=== PATIENT | female | born 1980 | race Caucasian/White ===

== ENCOUNTER 2017-02-28 13:16 | Emergency (ER) | payer OTHER ==
[~2017-02-28] VITALS: Ht 165.1 cm; Wt 117.5 kg
[~2017-02-28 13:16] MED LIST: BACT800T5 PO; CEPH500C3 PO; DOXY100T PO
[2017-02-28 13:26] VITALS: BP 147/92; PULSE 89; RESP 16; TEMP 98.9; O2SAT 98
[2017-02-28] MEDS ORDERED: LIDOCAINE 1%/EPINEPHrine 1:100,000 SOLN 30 ML VIAL INFIL ONE (13:45)
[2017-02-28] MEDS ORDERED: LIDOCAINE 1%/EPINEPHrine 1:100,000 SOLN 20 ML VIAL INFIL ONE (13:45)
--- NOTE | 2017-02-28 13:47 | PD ---
HPI Chief Complaint: Skin Problem Time Seen by Provider: 13:43 Travel History International Travel<30 days: No Contact w/Intl Traveler<30days: No Traveled to known affect area: No History of Present Illness HPI 36-year-old female presents to the emergency room for evaluation of an abscess to her left axilla that has been ongoing for the past 2 days. States it started off as a small pimple and then got larger very quickly. She tried to squeeze last night was unable to get any drainage. Patient denies fever, chills , nausea, vomiting. She has history of MRSA. Up-to-date on tetanus. PFSH Past Medical History Hx Anticoagulant Therapy: No Cancer: Yes (CERVICAL) Cardiovascular Problems: Yes (GESTATIONAL HTN) Diabetes: No Diminished Hearing: No ?: Not Past Surgical History Abdominal Surgery: Yes (OPEN LAPROSCOPIC, ABSCESS IN ABD) Section: Yes Hysterectomy: Yes Social History Alcohol Use: No Tobacco Use: Yes (1/2 ppd) Substance Use: No Allergies-Medications (Allergen,Severity, Reaction): Coded Allergies: Demerol (Verified Allergy, Severe, Patient states, "It will kill me"., ) Phenergan (Verified Allergy, Unknown, Itching, 02/28/17) *MDRO Multi-Drug Resistant Organism (Verified Adverse Reaction, Unknown, ) MRSA (foot-05/07/16) Reported Meds & Prescriptions Reported Meds & Active Scripts Active Reported Pseudoephedrine (Pseudoephedrine HCl) 60 Mg Tab 60 Mg PO Q6H PRN Claritin (Loratadine) 10 Mg Cap 10 Mg PO DAILY Review of Systems Except as stated in HPI: all other systems reviewed are Neg Physical Exam Narrative GENERAL: Well-nourished, well-developed female in no acute distress. Afebrile. Ambulatory. SKIN: Focused skin assessment warm/dry. There is an indurated area in the left axilla which measures about 4 cm in diameter. It is fluctuant but there is no pointing or drainage. There is a zone of inflammation around it but no lymphangitis. HEAD: Normocephalic. EYES: No scleral icterus. No injection or drainage. NECK: Supple, trachea midline. No JVD or lymphadenopathy. CARDIOVASCULAR: Regular rate and rhythm without murmurs, gallops, or rubs. RESPIRATORY: Breath sounds equal bilaterally. No accessory muscle use. PSYCHIATRIC: No delusional thought processes. No hallucinations. Data Data Last Documented VS Vital Signs Date Time Temp Pulse Resp B/P Pulse Ox O2 Delivery O2 Flow Rate FiO2 02/28/17 13:26 98.9 89 16 147/92 98 Orders Wound Culture And Gram Stain (02/28/17 13:41) Lidocai-Epi 1%-1:100,000 Inj (Xylocaine- (02/28/17 13:45) MDM Medical Decision Making Medical Screen Exam Complete: Yes Emergency Medical Condition: Yes Medical Record Reviewed: Yes Differential Diagnosis Abscess versus cellulitis versus MRSA Narrative Course 36-year-old female with MRSA presents to the emergency room for evaluation of an abscess to her left axilla for the past 3 days. It worsened yesterday. No systemic signs of infection. Patient is afebrile well-appearing in the emergency room. Resting comfortably in bed. His exam reveals an indurated area in the left axilla without lymphangitis. No spontaneous drainage. Abscess was drained, see procedure for details. Patient discharged with Bactrim and told to follow up with her primary care physician or return to the emergency room forcing symptoms. She understands and agrees plan. Procedures Procedure Narrative INCISION AND DRAINAGE OF ABSCESS: The area was prepped and was sterilely draped. A subcutaneous wheal of 1% lidocaine with epinephrine with a total number 3 mL was used to anesthetize the area properly. A number 11 scalpel was used to make a 1 cm incision across the area of the abscess. The abscess was drained, complex loculations were broken down, and irrigated with normal saline. Cultures were obtained. Quarter inch iodoform packing was placed in the wound. Sterile dressing applied. Patient advised to have packing removed in two days. Diagnosis Primary Impression: Abscess of left axilla Referrals: Primary Care Physician Patient Instructions: Abscess (ED), General Instructions Additional Instructions: Rest and drink plenty of fluids. Take Bactrim as directed, until gone. Return to the emergency room in 2 days to have packing removed. If it falls out before, this is okay. Follow up with a primary care physician. Return to emergency room for worsening symptoms, as discussed. Med/Other Pt SpecificInfo: Prescription(s) given Disposition: 01 DISCHARGE HOME Condition: Stable Teresa Sullivan February 28, 2017 13:47
[2017-02-28] MEDS ORDERED: CLAR10CA3 PO (13:48)
[2017-02-28] MEDS ORDERED: SUDO60TA2 PO (13:48)
[2017-02-28] MEDS ORDERED: BACT800T5 PO (14:50)
== END 2017-02-28 15:25 | disposition home or self-care (01) ==
LOC: PHEFT 13:16
DX: L02.412 Cutaneous abscess of left axilla (principal); A49.02 Methicillin resistant Staphylococcus aureus infection, unspecified site; F17.210 Nicotine dependence, cigarettes, uncomplicated
CPT/HCPCS: 10061; 86403; 87070; 87186; 87205

== ENCOUNTER 2017-04-17 10:05 | Emergency (ER) | payer OTHER ==
[~2017-04-17] VITALS: Ht 165.1 cm; Wt 115.2 kg
[~2017-04-17 10:05] MED LIST changes: -CEPH500C3 PO; +CLAR10CA3 PO; -DOXY100T PO; +SUDO60TA2 PO
[2017-04-17 10:11] VITALS: BP 152/102; PULSE 82; RESP 16; TEMP 98.4; O2SAT 98
[2017-04-17] MEDS ORDERED: DOXY100C PO (10:44)
--- NOTE | 2017-04-17 10:44 | PD ---
HPI Chief Complaint: Skin Problem Time Seen by Provider: 10:23 Travel History International Travel<30 days: No Contact w/Intl Traveler<30days: No Traveled to known affect area: No History of Present Illness HPI Patient 36-year-old female presents emergency Department with pain and swelling and drainage from her left armpit. Patient states that she's had a similar thing happen to her couple months ago and had to be drained in the emergency department, she was placed on Bactrim at that time and then she received a phone call stating that the Bactrim may not work for her after her wound culture came back. Patient states that her wound has been present for the past week and started draining spontaneously which caused her to come into the emergency department, denies any fever denies any nausea vomiting chest pain shortness of breath. She's been scrubbing her armpit with Hibiclens. Incidentally the patient has a history of cervical cancer which is in remission and status post radical hysterectomy. she has not followed up with a primary care physician in many years, denies any weight loss denies. PFSH Past Medical History Hx Anticoagulant Therapy: No Cancer: Yes (CERVICAL, ovarian ) Cardiovascular Problems: Yes (GESTATIONAL HTN) Diabetes: No Diminished Hearing: No ?: Not Past Surgical History Abdominal Surgery: Yes (OPEN LAPROSCOPIC, ABSCESS IN ABD) Section: Yes Hysterectomy: Yes Social History Alcohol Use: No Tobacco Use: Yes (3 CIG/DAY) Substance Use: No Allergies-Medications (Allergen,Severity, Reaction): Coded Allergies: Demerol (Verified Allergy, Severe, Patient states, "It will kill me"., ) Phenergan (Verified Allergy, Unknown, Itching, 04/17/17) *MDRO Multi-Drug Resistant Organism (Verified Adverse Reaction, Unknown, ) MRSA (foot-05/07/16) MRSA (arm wound) - 02/28/17 Reported Meds & Prescriptions Reported Meds & Active Scripts Active Doxycycline Hyclate 100 Mg Cap 100 Mg PO BID 7 Days Review of Systems Except as stated in HPI: all other systems reviewed are Neg Physical Exam Narrative GENERAL: Well-nourished, well-developed patient. SKIN: Focused skin assessment warm/dry. Left arm. Has a small pustule with minimal surrounding cellulitis, no palpable fluid collection. Minimally tender to palpation. No lymphadenopathy appreciated. HEAD: Normocephalic. EYES: No scleral icterus. No injection or drainage. NECK: Supple, trachea midline. No JVD or lymphadenopathy. CARDIOVASCULAR: Regular rate and rhythm without murmurs, gallops, or rubs. RESPIRATORY: Breath sounds equal bilaterally. No accessory muscle use. GASTROINTESTINAL: Abdomen soft, non-tender, nondistended. MUSCULOSKELETAL: No cyanosis, or edema. BACK: Nontender without obvious deformity. No CVA tenderness. Data Data Last Documented VS Vital Signs Date Time Temp Pulse Resp B/P Pulse Ox O2 Delivery O2 Flow Rate FiO2 04/17/17 10:11 98.4 82 16 152/102 98 Orders Ed Poc Ultrasound (04/17/17 ) MDM Medical Decision Making Medical Screen Exam Complete: Yes Emergency Medical Condition: Yes Differential Diagnosis Cellulitis, abscess, ingrown hair, hidradenitis suppurativa Narrative Course Patient roomed emergency department, bedside ultrasound shows no drainable fluid collection, she appears well in no distress. She was offered pain medicine and declined. Will be discharged on doxycycline. The review of the microbiology from several months ago does show the Bactrim was effective but will try alternative regimen given her history. Procedures Procedure Narrative Bedside ultrasound: With linear probe soft tissue images were obtained of the left axilla showing a small subcutaneous fluid collection, minimal cobblestoning. Diagnosis Primary Impression: Abscess of left axilla Referrals: Emil Evangelista MD [facility] Additional Instructions: Can follow-up with Dr. Evangelista as needed for considerations of surgical options, also consider following up with the [place]. Med/Other Pt SpecificInfo: Prescription(s) given Scripts Doxycycline Hyclate 100 Mg [id number] Mg PO BID 7 Days Ref 0 Prov:Ramin Eden MD 04/17/17 Disposition: 01 DISCHARGE HOME Condition: Stable Ramin Eden MD Apr 17, 2017 10:44
== END 2017-04-17 10:59 | disposition home or self-care (01) ==
LOC: PHED 10:05
DX: L02.412 Cutaneous abscess of left axilla (principal); Z72.0 Tobacco use
CPT/HCPCS: 99284

== ENCOUNTER 2017-05-25 12:55 | Emergency (ER) | payer SELFPAY ==
[~2017-05-25] VITALS: Ht 165.1 cm; Wt 113.0 kg
[~2017-05-25 12:55] MED LIST changes: -BACT800T5 PO; -CLAR10CA3 PO; +DOXY100C PO; -SUDO60TA2 PO
[2017-05-25 12:56] VITALS: BP 151/86; PULSE 94; RESP 24; TEMP 98.3; O2SAT 97
--- NOTE | 2017-05-25 13:18 | PD ---
Physical Exam Date Seen by Provider: May 25, 2017 Time Seen by Provider: 13:13 Narrative 36 y/o female here with complaints of episode of Near Syncopy last night and Fevers and Cold Symptoms with Cough, Post Tussive Emesis, and Night Sweats. Some Increased SOB and Weak. No Abd Pain. No Urinary Symptoms. Fever as high as 101. Vital Signs reviewed. Patient is Stable and awaiting Bed Placement. Data Data Last Documented VS Vital Signs Date Time Temp Pulse Resp B/P (MAP) Pulse Ox O2 Delivery O2 Flow Rate FiO2 05/25/17 12:56 98.3 94 24 151/86 (107) 97 Room Air [facility] Medical Record Reviewed: Yes Supervised Visit with GLENN: Yes Condition: Stable Darwin Tapia May 25, 2017 13:18
--- NOTE | 2017-05-25 15:00 | RADRPT ---
EXAM DATE/TIME: 05/25/2017 14:53 [place] COMPARISON: No previous studies available for comparison. INDICATIONS : Short of breath and productive cough this morning. MEDICAL HISTORY : None. SURGICAL HISTORY : None. ENCOUNTER: Initial ACUITY: 1 day PAIN SCORE: 0/10 LOCATION: Bilateral chest FINDINGS: PA and lateral views of the chest demonstrate the lungs to be symmetrically aerated without evidence of mass, infiltrate or effusion. The cardiomediastinal contours are unremarkable. Osseous structure s are intact. CONCLUSION: No acute disease. Nitin Simmons MD on May 25, 2017 at 14:59 Board Certified Radiologist. This report was verified electronically.
--- NOTE | 2017-05-25 15:35 | PD ---
HPI Chief Complaint: Cold / Flu Symptoms Time Seen by Provider: 15:34 Travel History International Travel<30 days: No Contact w/Intl Traveler<30days: No Traveled to known affect area: No History of Present Illness HPI 36-year-old female presents to the emergency Department with complaint of fever , cough, nasal congestion, throat irritation since Thursday. MAXIMUM TEMPERATURE of 101.0. Reports feeling short of breath with activity. Denies shortness of breath while at rest. Denies chest pain or wheezing. Reports tobacco use. Reports squatting down and then standing up yesterday and feeling dizzy and lightheaded. Reports cough attacks causing her to vomit. Denies abdominal pain, dysuria, change in stool. Has been taking ibuprofen and Tylenol for symptom management. Symptoms are moderate in severity. Allergies to meperidine and promethazine. Has no other medical complaints. No other midline factors or associated signs and symptoms. PFSH Past Medical History Hx Anticoagulant Therapy: No Cancer: Yes (CERVICAL, ovarian ) Cardiovascular Problems: Yes (GESTATIONAL HTN) Chemotherapy: Yes (CERVICAL) Diabetes: No Diminished Hearing: No ?: Not Past Surgical History Abdominal Surgery: Yes (OPEN LAPROSCOPIC, ABSCESS IN ABD) Section: Yes Hysterectomy: Yes Social History Alcohol Use: No Tobacco Use: Yes (3 CIG/DAY) Substance Use: No Allergies-Medications (Allergen,Severity, Reaction): Coded Allergies: meperidine (Unverified Allergy, Severe, Patient states, "It will kill me". , 05/25/17) promethazine (Unverified Allergy, Unknown, Itching, 05/25/17) *MDRO Multi-Drug Resistant Organism (Verified Adverse Reaction, Unknown, ) MRSA (foot-05/07/16) MRSA (arm wound) - 02/28/17 Reported Meds & Prescriptions Reported Meds & Active Scripts Active Azithromycin 500 Mg Tab 500 Mg PO DAILY Deltasone (Prednisone) 20 Mg Tab 40 Mg PO DAILY 4 Days Tessalon Perles (Benzonatate) 100 Mg Cap 100 Mg PO TID PRN Proair Hfa 8.5 GM Inh (Albuterol Sulfate) 90 Mcg/Act Aer 2 Puff INH Q4-6H PRN 108 mcg/actuation Review of Systems Except as stated in HPI: all other systems reviewed are Neg Physical Exam Narrative GENERAL: Well-nourished, well-developed female patient, in no acute distress; afebrile, nontoxic-appearing SKIN: Warm and dry. No rash. HEAD: Atraumatic. Normocephalic. EYES: Pupils equal and round. No scleral icterus. No injection or drainage. ENT: Mucosa pink and moist. No erythema or exudates. No uvular edema. No uvular , palatal, or tonsillar deviation. Airway patent. EARS: Bilateral pinnae and external canals appear within normal limits. Left tympanic membrane with erythema, dullness, and loss of landmarks; no perforation. Right tympanic membrane without erythema, dullness or perforation. NECK: Trachea midline. No lymphadenopathy. CARDIOVASCULAR: Regular rate and rhythm. No murmur appreciated. RESPIRATORY: No accessory muscle use. Clear to auscultation with decreased lung sounds in bilateral bases. Breath sounds equal bilaterally. No retractions or tachypnea. Dry cough noted on exam. GASTROINTESTINAL: Abdomen soft, non-tender, nondistended. Hepatic and splenic margins not palpable. Bowel sounds are active 4 quadrants. MUSCULOSKELETAL: No obvious deformities. No clubbing. No cyanosis. No edema. NEUROLOGICAL: Awake and alert. Oriented 3. No obvious cranial nerve deficits. Motor grossly within normal limits. Normal speech. Moves all extremities. 5/5 strength to all extremities. PSYCHIATRIC: Appropriate mood and affect; insight and judgment normal. Data Data Last Documented VS Vital Signs Date Time Temp Pulse Resp B/P (MAP) Pulse Ox O2 Delivery O2 Flow Rate FiO2 05/25/17 17:38 05/25/17 12:56 98.3 94 24 97 Room Air Orders Orders Chest, Pa & Lat (05/25/17 13:19) Albuterol Neb (Albuterol Neb) (05/25/17 15:45) Prednisone (Deltasone) (05/25/17 16:00) [facility] Medical Decision Making Medical Screen Exam Complete: Yes Emergency Medical Condition: Yes Medical Record Reviewed: Yes Differential Diagnosis Upper respiratory infection, influenza, bronchitis, viral illness, pneumonia Narrative Course 36-year-old female with upper respiratory symptoms since Thursday. Reports MAXIMUM TEMPERATURE of 101.0. Patient is afebrile and nontoxic-appearing in the ER. Reports shortness of breath with activity. Denies chest pain. Patient is in no acute distress and oxygen saturation is 97% on room air. No retractions or tachypnea. Chest x-ray ordered in triage. Patient does have left otitis media found on physical exam. Influenza, albuterol nebulizer, Deltasone ordered. 1534: Chest x-ray with no acute findings. On reexamination patient reports improvement in symptoms after albuterol nebulizer. Lung sounds are clear and equal throughout with improvement in air flow in bilateral bases. Microbiology informed us that was not enough specimen to influenza. The patient declined rerunning the test. Azithromycin, Deltasone, pro-air inhaler prescribed for home. Instructed patient to follow up with primary care provider. Patient verbalizes understanding and agreement with treatment plan. Patient is medically cleared and stable for discharge. Discussed reasons to return to the emergency department. Patient agrees with treatment plan. The patients vital signs are stable and the patient is stable for outpatient follow- up and treatment. Patient discharged home, stable and in no acute distress. Diagnosis Primary Impression: Left otitis media Qualified Codes: H66.92 - Otitis media, unspecified, left ear Additional Impression: Bronchitis Referrals: [facility] Primary Care Physician Departure Forms: Tests/Procedures, Work Release Enter return to work date: May 27, 2017 Additional Instructions: Use Albuterol inhaler as prescribed Take oral steroids as prescribed and complete full course Use Tessalon Perles as prescribed to decrease coughing spasms [id number] decongestants or antihistamines as directed and as needed for symptom management Your cough can last 4-6 weeks Drink plenty of fluids to prevent dehydration Use hot air humidifier to decrease cough exacerbation Turn off ceiling fans and sleep with head of bed elevated Avoid triggers such as second hand smoke, dust, known allergens Follow-up with your primary care provider Return to the emergency department immediately with worsening of symptoms Med/Other Pt SpecificInfo: Prescription(s) given Scripts Azithromycin (Azithromycin) 500 Mg Tab 500 MG PO DAILY for Infection, #5 TAB 0 Refills Prov: Marlene ThompsonP 05/25/17 Prednisone (Deltasone) 20 Mg Tab 40 MG PO DAILY for 4 Days, TAB 0 Refills Prov: Marlene ThompsonP 05/25/17 Benzonatate (Tessalon Perles) 100 Mg Cap 100 MG PO TID Y for COUGH, #10 CAP 0 Refills Prov: Marlene ThompsonP 05/25/17 Albuterol 8.5 GM Inh (Proair Hfa 8.5 GM Inh) 90 Mcg/Act Aer 2 PUFF INH Q4-6H Y for SOB/WHEEZING, #1 INHALER 0 Refills 108 mcg/actuation Prov: Marlene Thompson 05/25/17 Disposition: 01 DISCHARGE HOME Condition: Stable Marlene Thompson May 25, 2017 15:35
[2017-05-25] MEDS ORDERED: RESP: ALBUTEROL 2.5 MG/3 ML NEB (SCH) INH ONE (15:45)
[2017-05-25] MEDS ORDERED: predniSONE 20 MG TAB PO ONE (16:00)
[2017-05-25] MEDS ORDERED: AZIT500T2 PO (16:46)
[2017-05-25] MEDS ORDERED: BENZ100 PO (16:46)
[2017-05-25] MEDS ORDERED: ALBUAER3 INH (16:46)
[2017-05-25] MEDS ORDERED: PRED-503 PO (16:46)
== END 2017-05-25 17:38 | disposition home or self-care (01) ==
LOC: NEPK 12:55
DX: Z72.0 Tobacco use (principal); H66.92 Otitis media, unspecified, left ear; J40 Bronchitis, not specified as acute or chronic
CPT/HCPCS: 71020; 94664; 99284; J7512; J7613; 87804

== ENCOUNTER 2018-07-10 20:04 | Inpatient (IN) ==
[2018-07-10 22:21] LABS: Alanine Aminotransferase 34 U/L (10-53); Albumin 3.5 g/dL (3.4-5.0); Anion Gap 6 meq/L (5-15); Aspartate Aminotransferase 23 U/L (15-37); Blood Urea Nitrogen 9 mg/dL (7-18); Calcium 8.4 mg/dL (8.5-10.1); Carbon Dioxide 24.6 meq/L (21.0-32.0); Chloride 105 meq/L (98-107); Glomerular Filtration Rate 86 mL/min (>89); Glucose,Random 115 mg/dL (74-106); Potassium 3.9 meq/L (3.5-5.1); Sodium 136 meq/L (136-145)
[2018-07-10 22:23] LABS: Alkaline Phosphatase 76 U/L (45-117); Total Protein 7.4 g/dL (6.4-8.2)
[2018-07-10 22:36] LABS: Baso % (Auto) 0.5 % (0.0-2.0); Eos # (Auto) 0.1 th/mm3 (0.0-0.4); Eos % (Auto) 1.1 % (0.0-4.0); Hemoglobin 14.2 gm/dL (11.6-15.3); Lymph # (Auto) 1.8 th/mm3 (1.0-4.8); Lymph % (Auto) 18.1 % (9.0-44.0); Mean Corpuscular HGB Conc 34.5 % (32.0-36.0); Mean Corpuscular Hemoglobin 30.3 pg (27.0-34.0); Mean Corpuscular Volume 87.9 fL (80.0-100.0); Mean Platelet Volume 8.8 fL (7.0-11.0); Mono # (Auto) 0.9 th/mm3 (0.0-0.9); Mono % (Auto) 9.3 % (0.0-8.0); Neut # (Auto) 7.1 th/mm3 (1.8-7.7); Platelet Count 270 th/mm3 (150-450); Red Blood Count 4.67 mil/mm3 (4.00-5.30); Red Cell Distribution Width 13.6 % (11.6-17.2); White Blood Count 9.9 th/mm3 (4.0-11.0)
--- NOTE | 2018-07-10 23:17 | CT ---
EXAM DATE: 07/10/2018 10:41 PM EDT AGE/SEX: 37 years / Female INDICATIONS: Sore throat past 2 days. Evaluate for peritonsillar abscess CLINICAL DATA: This is the patient's initial encounter. Patient reports that signs and symptoms have been present for 2 days and indicates a pain score of 10/10. MEDICAL/SURGICAL HISTORY: Carcinoma, cervical. Hysterectomy. section. RADIATION DOSE: 21.96 CTDI (mGy) COMPARISON: No prior exams available for comparison. TECHNIQUE: Helical acquisition was performed using a multirow detector CT scanner during the adminis tration of 70 ml Omnipaque 350 (iohexol) nonionic water-soluble contrast as a single exam dose. Usi ng automated exposure control and adjustment of the mA and/or kV according to patient size, radiation dose was kept as low as reasonably achievable to obtain optimal diagnostic quality images. DICOM fo rmat image data is available electronically for review and comparison. FINDINGS: There are close to fluid density collections in the submucosal tissues of the posterior lateral laryn x bilaterally, effacing the piriform sinuses, collections each side measuring approximately 1.5 cm. T hese are felt to likely represent areas of laryngeal abscess formation. There is some moderate associ ated constriction of the airway. The process does not appear to extend as low as the vocal cords per se. There is a slightly less than 2 cm close to fluid density process anteriorly just deep to the hyo id and anterior to the supraglottic larynx, also potentially abscess, however a thyroglossal duct cys t could also have this appearance in this location. Elsewhere in the neck, small scattered lymph nodes are present, presumably reactive. Visualized brain and orbital facial structures are unremarkable. The salivary glands are unremarkable . The supraclavicular regions and visualized lung apices are clear. There are some small lymph nodes visualized in the upper mediastinum. The thyroid is normal for CT appearance. CONCLUSION: 1. Bilateral posterolateral supraglottic laryngeal abscesses significantly effacing the piriform sin uses bilaterally, threatening airway compromise. 2. Low density process at a similar level anteriorly may be abscess or thyroglossal duct cyst Electronically signed by: Truman Choudhary MD 07/10/2018 11:16 PM EDT
[2018-07-10] MEDS ORDERED: Clindamycin 300 mg/NS Premix 300 MG/50 ML PIGGYBACK IV.SIG ONE (23:28)
--- NOTE | 2018-07-10 23:33 | ED ---
HPI General Chief complaint: Respiratory Symptoms Stated complaint: fever/throat sore/no voice Time Seen by Provider: 07/10/18 21:37 History of Present Illness HPI narrative: 37 female here for evaluation of sore throat and fever for the last 3 days, she has difficulty swallowing, T-max of 102 at home, no nausea or vomiting or diarrhea, she never had these symptoms past, history of cervical cancer status post hysterectomy 9 years ago, no chest pain or shortness of breath. Related Data Home Medications Medication Instructions Recorded Confirmed No Known Home Medications 07/10/18 07/10/18 Allergies Allergy/AdvReac Type Severity Reaction Status Date / Time meperidine Allergy Severe Patient Verified 07/10/18 20:17 states, "It will kill me". promethazine Allergy Unknown Itching Verified 07/10/18 20:17 Review of Systems ROS: all other systems reviewed are negative [facility] Medical History Medical History Epilepsy (Acute) Hx of cervical cancer (Acute) Hx of hysterectomy (Acute) Surgical History Surgical History Hx of section (Acute) Social History Social History Substance History: No History of Abuse Smoking Status: Unknown if ever smoked How Often Do You Have a Drink Containing Alcohol: Never Recent Travel in [facility] within the Last 8 Weeks: No Recent Out of Country Travel within the Last 8 Weeks: No Immunization History Tetanus Immunization: <5 Years Exam Narrative Exam Narrative: GENERAL: Alert oriented x3 no acute distress. SKIN: Focused skin assessment warm/dry. HEAD: Atraumatic. Normocephalic. EYES: Pupils equal and round. No scleral icterus. No injection or drainage. ENT: No nasal bleeding or discharge. Mucous membranes pink and moist. NECK: Trachea midline. No JVD. CARDIOVASCULAR: Regular rate and rhythm. No murmur appreciated. RESPIRATORY: No accessory muscle use. Clear to auscultation. Breath sounds equal bilaterally. GASTROINTESTINAL: Abdomen soft, non-tender, nondistended. Hepatic and splenic margins not palpable. MUSCULOSKELETAL: No obvious deformities. No clubbing. No cyanosis. No edema. NEUROLOGICAL: Awake and alert. No obvious cranial nerve deficits. Motor grossly within normal limits. Normal speech. PSYCHIATRIC: Appropriate mood and affect; insight and judgment normal. Course Initial Documented Vital Signs Temperature 101.5 F H 07/10/18 20:14 Pulse Rate 93 H 07/10/18 20:14 Respiratory Rate 18 07/10/18 20:14 Blood Pressure 143/106 H 07/10/18 20:14 Pulse Oximetry 98 07/10/18 20:14 Last Documented Vital Signs Temperature 101.5 F H 07/10/18 20:14 Pulse Rate 93 H 07/10/18 20:14 Respiratory Rate 18 07/10/18 20:14 Blood Pressure 143/106 H 07/10/18 20:14 Pulse Oximetry 98 07/10/18 20:14 Medical Decision Making MDM Narrative Medical Screen Exam Complete: Yes Emergency Medical Condition: Yes Lab Data Lab results narrative: 37 female here for sore throat and fever, ENT exam is unremarkable, CAT scan shows supraglottic laryngeal abscesses threatening airway compromise. Clinically patient is breathing comfortably, not in acute distress, saturating 98% on room air, patient will need to be admitted to ICU for close monitoring of the airway, received 8 mg of Decadron and IV clindamycin. I spoke with Dr. Gilmore who accepted the patient. Result diagrams: 07/10/18 21:55 07/10/18 21:55 Lab Results 07/10/18 07/10/18 Range/Units 21:55 21:55 WBC 9.9 (4.0-11.0) th/mm3 RBC 4.67 (4.00-5.30) mil/mm3 Hgb 14.2 (11.6-15.3) gm/dL Hct 41.0 (35.0-46.0) % MCV 87.9 (80.0-100.0) fL MCH 30.3 (27.0-34.0) pg MCHC 34.5 (32.0-36.0) % RDW 13.6 (11.6-17.2) % Plt Count 270 (150-450) th/mm3 MPV 8.8 (7.0-11.0) fL Neut % (Auto) 71.0 H (16.0-70.0) % Lymph % (Auto) 18.1 (9.0-44.0) % [place] % (Auto) 9.3 H (0.0-8.0) % Eos % (Auto) 1.1 (0.0-4.0) % Baso % (Auto) 0.5 (0.0-2.0) % Neut # (Auto) 7.1 (1.8-7.7) th/mm3 Lymph # (Auto) 1.8 (1.0-4.8) th/mm3 [place] # (Auto) 0.9 (0.0-0.9) th/mm3 Eos # (Auto) 0.1 (0.0-0.4) th/mm3 Baso # (Auto) 0.0 (0.0-0.2) th/mm3 WBC Differential . Differential Comment Auto diff final Sodium 136 (136-145) meq/L Potassium 3.9 (3.5-5.1) meq/L Chloride 105 (98-107) meq/L Carbon Dioxide 24.6 (21.0-32.0) meq/L Anion Gap 6 (5-15) meq/L BUN 9 (7-18) mg/dL Creatinine 0.75 (0.50-1.00) mg/dL Estimated GFR 86 L (>89) mL/min Random Glucose 115 H (74-106) mg/dL Calcium 8.4 L (8.5-10.1) mg/dL Total Bilirubin 0.2 (0.2-1.0) mg/dL AST 23 (15-37) U/L ALT 34 (10-53) U/L Alkaline Phosphatase 76 (45-117) U/L Total Protein 7.4 (6.4-8.2) g/dL Albumin 3.5 (3.4-5.0) g/dL Imaging Data Radiologist's impression: Soft Tissue Neck CT 07/10/18 21:49 CONCLUSION: 1. Bilateral posterolateral supraglottic laryngeal abscesses significantly effacing the piriform sinuses bilaterally, threatening airway compromise. 2. Low density process at a similar level anteriorly may be abscess or thyroglossal duct cyst Discharge Plan Discharge Disposition Patient Disposition: 30 Still Patient Discharge Details Diagnosis: Supraglottic abscess Physicians Team ED Provider: Frank Mckenzie Primary Care Provider: Primary Care Laura Cole Attending Provider: Shyam Gilmore Status ED Status: Admitted Patient
[2018-07-11] MEDS ORDERED: Vancomycin Consult Pharmacy OTHER PRN (01:38)
[2018-07-11] MEDS ORDERED: Acetaminophen 325 MG Tablet PO PRN (01:40)
[2018-07-11] MEDS ORDERED: Morphine Inj 4 MG/ML Vial IV.PUSH PRN (01:40)
[2018-07-11] MEDS ORDERED: Bisacodyl 10 MG Supp RECTAL PRN (01:40)
--- NOTE | 2018-07-11 01:43 | P.HPCC ---
History of Present Illness Primary Care Physician: No Primary Care Physician History of Present Illness: 37-year-old very pleasant female presents for an evaluation of sore throat and fever for the last 3 days. She has difficulty swallowing, T-max of 102 at home, no nausea or vomiting or diarrhea, she never had these symptoms past, no chest pain or shortness of breath. The CT of the neck soft tissues shows Bilateral posterolateral supraglottic laryngeal abscesses significantly effacing the piriform sinuses bilaterally, threatening airway compromise, and the patient has been admitted to critical care service. Inpatient Certification: I certify that the inpatient services were ordered in accordance with Medicare regulations governing the order. This includes certification that hospital inpatient services are reasonable and necessary and in the case of services not specified as inpatient-only under 42 CFR 419.22(n), that they are appropriately provided as inpatient services in accordance to with the 2-midnight benchmark under 43 CFR 412.3(e) Estimated Total Length of Stay (Days): 5 Plans for Post Hospital Care: Not yet determined Review of Systems All other systems reviewed negative except as stated in HPI [facility] - History History Provided By: Patient - Medical History Medical History: Medical History (Last Updated 07/10/18 @ 20:16 by Vicente Connolly RN) Epilepsy Hx of cervical cancer Hx of hysterectomy - Surgical History Surgical History: Surgical History (Last Updated 07/10/18 @ 20:16 by Vicente Connolly RN) Hx of section - Tobacco History Smoking Status: Unknown if ever smoked - Alcohol History How Often Do You Have a Drink Containing Alcohol: Never - Substance Use History Substance History: No History of Abuse - Travel History Recent Travel in the [place] Within the Last 8 Weeks: No Recent Travel Out of the Country Within the Last 8 Weeks: No - Immunization History Tetanus Immunization: <5 Years Medications and Allergies Active Medications: Active Medications Dexamethasone Sodium Phosphate (Decadron Inj) 10 mg IV.PUSH DAILY [facility] Clindamycin/Sodium Chloride (Cleocin 900 Mg/Ns Premix) 900 mg in 50 mls @ 100 mls/hr IV.SIG Q8H [facility] Pharmacy Profile Note (Vancomycin Consult Pharmacy) 1 each OTHER UNSCH PRN PRN Reason: Pharmacy to dose Current Medications Acetaminophen (Tylenol) 650 mg PO Q6H PRN PRN Reason: PAIN 1-10 AND/OR FEVER >101F Al Hydroxide/Mg Hydroxide (Milk Of Magnesia Liq) 30 ml PO Q12H PRN PRN Reason: Mild Constipation Albuterol (Duoneb Neb (Prn)) 1 ampul NEB Q2HR NEB PRN PRN Reason: WHEEZING Bisacodyl (Dulcolax Supp) 10 mg RECTAL DAILY PRN PRN Reason: SEVERE CONSITIPATION Chlorhexidine Gluconate (Chlorhexidine 2% Cloth) 3 pack TOPICAL DAILY@0400 [facility] Stop: 07/16/18 03:59 Chlorhexidine Gluconate (Chlorhexidine 2% Cloth) 3 pack TOPICAL DAILY@0400 PRN PRN Reason: Extra cloth needed Stop: 07/16/18 03:59 Dexamethasone Sodium Phosphate (Decadron Inj) 10 mg IV.PUSH DAILY [facility] Enoxaparin Sodium (Lovenox Inj) 40 mg SQ Q24H [facility] Last Admin: 07/11/18 02:41 Dose: 40 mg Famotidine (Pepcid Pf Inj) 20 mg IV.PUSH Q12HR [facility] Clindamycin/Sodium Chloride (Cleocin 900 Mg/Ns Premix) 900 mg in 50 mls @ 100 mls/hr IV.SIG Q8H [facility] Last Admin: 07/11/18 02:30 Dose: 100 mls/hr Vancomycin HCl 2,200 mg/ (Sodium Chloride) 522 mls @ 250 mls/hr IV.SIG DAILY@ 0300 [facility] Stop: 07/11/18 05:30 Last Admin: 07/11/18 04:20 Dose: 250 mls/hr Sodium Chloride (Ns Inj) 1,000 mls @ 84 mls/hr IV.CONT .[id number] [facility] Last Admin: 07/11/18 02:31 Dose: 84 mls/hr Lactulose (Lactulose Liq) 30 ml PO DAILY PRN PRN Reason: SEVERE CONSITIPATION Morphine Sulfate (Morphine Inj) 2 mg IV.PUSH Q2H PRN PRN Reason: PAIN SCALE 6 TO 10 Ondansetron HCl (Zofran Inj) 4 mg IV.PUSH Q6H PRN PRN Reason: NAUSEA OR VOMITING Pharmacy Profile Note (Vancomycin Consult Pharmacy) 1 each OTHER UNSCH PRN PRN Reason: Pharmacy to dose Senna/Docusate Sodium (Lizbeth-Colace) 1 tab PO BID [facility] Sennosides (Senokot) 17.2 mg PO Q12H PRN PRN Reason: Moderate Constipation Sodium Chloride (Ns Flush) 2 ml IV.FLUSH BID [facility] Sodium Chloride (Ns Flush) 2 ml IV.FLUSH PRN PRN PRN Reason: FLUSH AFTER USING IV ACCESS Allergies Allergy/AdvReac Type Severity Reaction Status Date / Time meperidine Allergy Severe Patient Verified 07/10/18 20:17 states, "It will kill me". promethazine Allergy Unknown Itching Verified 07/10/18 20:17 Home Medications Medication Instructions Recorded Confirmed Type No Known Home Medications 07/10/18 07/10/18 History Results - Labs CBC & Chem 7: 07/10/18 21:55 07/10/18 21:55 Labs: Short CBC 07/10/18 Range/Units 21:55 WBC 9.9 (4.0-11.0) th/mm3 Hgb 14.2 (11.6-15.3) gm/dL Hct 41.0 (35.0-46.0) % Plt Count 270 (150-450) th/mm3 BMP 07/10/18 21:55 Sodium 136 Potassium 3.9 Chloride 105 Carbon Dioxide 24.6 BUN 9 Creatinine 0.75 Calcium 8.4 L Liver Function 07/10/18 Range/Units 21:55 Total Bilirubin 0.2 (0.2-1.0) mg/dL AST 23 (15-37) U/L ALT 34 (10-53) U/L Alkaline Phosphatase 76 (45-117) U/L Albumin 3.5 (3.4-5.0) g/dL - Imaging Impressions Soft Tissue Neck CT 07/10/18 21:49 CONCLUSION: 1. Bilateral posterolateral supraglottic laryngeal abscesses significantly effacing the piriform sinuses bilaterally, threatening airway compromise. 2. Low density process at a similar level anteriorly may be abscess or thyroglossal duct cyst Exam Vital signs: Vital Signs 07/10/18 20:14 07/11/18 00:42 Temperature 101.5 F H 98.5 F Pulse Rate 93 H 73 Respiratory Rate 18 16 Blood Pressure 143/106 H 132/98 H Pulse Oximetry 98 Intake & Output 07/10/18 07/10/18 07/11/18 06:59 18:59 06:59 Intake Total 50 / 50 Balance 50 / 50 Weight 121.563 kg Intake: IV 50 / 50 Cleocin 300 mg/NS Premix 300 mg 50 / 50 In 50 ml @ 100 mls/hr IV.SIG ONCE ONE Rx#:[id number] - Constitutional mild distress - Routine HEENT Exam Head: Present: normocephalic, atraumatic Eye: Present: EOMI, PERRL, normal accommodation ENT: Present: mucous membranes moist - Routine Neck Exam Present: supple, lymphadenopathy. Absent: JVD, carotid bruit - Routine Chest/Breast/Axilla Exam Chest wall: Absent: tenderness - Routine Respiratory Exam Absent: accessory muscle use, rhonchi, stridor, wheezes - Routine Cardiovascular Exam Present: RRR, S1, S2 - Routine Abdominal Exam Present: soft, normoactive bowel sounds. Absent: tenderness, distended - Routine Extremities Exam Absent: cyanosis, clubbing, edema - Routine Skin Exam Present: intact. Absent: cyanosis, erythema - Routine Neurological Exam Present: alert, oriented X3, moving all extremities Septic Shock Reassessment Septic shock perfusion: reassessment completed Caprini VTE Risk Assessment Caprini VTE Risk Assessment: Moderate/High Risk (score >= 2) Caprini Risk Assessment Model: Point Value = 1 Point Value = 2 Point Value = 3 Point Value = 5 Age 41-60 Minor surgery BMI > 25 kg/m2 Swollen legs Varicose veins or History of unexplained or recurrent spontaneous Oral contraceptives or hormone replacement Sepsis (< 1 month) Serious lung disease, including pneumonia (< 1 month) Abnormal pulmonary function Acute myocardial infarction Congestive heart failure (< 1 month) History of inflammatory bowel disease Medical patient at bed rest Age 61-74 Arthroscopic surgery Major open surgery (> 45 min) Laparoscopic surgery (> 45 min) Malignancy Confined to bed (> 72 hours) Immobilizing plaster cast Central venous access Age >= 75 History of VTE Family history of VTE Factor V Leiden Prothrombin [id number] Lupus anticoagulant Anticardiolipin antibodies Elevated serum homocysteine Heparin-induced thrombocytopenia Other congenital or acquired thrombophilia Stroke (< 1 month) Elective arthroplasty Hip, pelvis, or leg fracture Acute spinal cord injury (< 1 month) Prophylaxis Regimen: Total Risk Factor Score Risk Level Prophylaxis Regimen 0-1 Low Early ambulation 2 Moderate Order ONE of the following: *Sequential Compression Device (SCD) *Heparin 5000 units SQ BID 3-4 Higher Order ONE of the following medications: *Heparin 5000 units SQ TID *Enoxaparin/Lovenox 40 mg SQ daily (WT < 150 kg, CrCl > 30 mL/min) *Enoxaparin/Lovenox 30 mg SQ daily (WT < 150 kg, CrCl > 10-29 mL/min) *Enoxaparin/Lovenox 30 mg SQ BID (WT < 150 kg, CrCl > 30 mL/min) AND/OR *Sequential Compression Device (SCD) 5 or more Highest Order ONE of the following medications: *Heparin 5000 units SQ TID (Preferred with Epidurals) *Enoxaparin/Lovenox 40 mg SQ daily (WT < 150 kg, CrCl > 30 mL/min) *Enoxaparin/Lovenox 30 mg SQ daily (WT < 150 kg, CrCl > 10-29 mL/min) *Enoxaparin/Lovenox 30 mg SQ BID (WT < 150 kg, CrCl > 30 mL/min) AND *Sequential Compression Device (SCD) Assessment and Plan - Assessment and Plan Plan: Laryngeal abscess -Clindamycin empirically as a first-line therapy -Vancomycin per pharmacy dosing -Dexamethasone -ENT consultation -Admit to ICU -Monitor closely for any airway compromise DVT GI prophylaxis -Teds SCDs -Lovenox -Pepcid 35 minutes of critical care
[2018-07-11] MEDS: Clindamycin 900 mg/NS Premix 900 MG/50 ML PIGGYBACK IV.SIG SCH ×3 (02:30→17:41)
[2018-07-11] MEDS: Sod Chloride 0.9% Inj 1,000 ML IV.CONT SCH ×2 (02:31→17:22)
[2018-07-11] MEDS: Enoxaparin Inj 40 MG/0.4 ML Syringe SQ SCH (02:41)
[2018-07-11] MEDS ORDERED: Vancomycin Inj 2,200 MG in Sodium Chlor 0.9% Inj 500 ML IV.SIG SCH (03:00)
[2018-07-11] MEDS ORDERED: Chlorhexidine Gluconate 2% 1 Pack (2 Cloths) TOPICAL PRN (04:00)
[2018-07-11] MEDS: Chlorhexidine Gluconate 2% 1 Pack (2 Cloths) TOPICAL SCH (05:08)
[2018-07-11] MEDS: Senna/Docusate Sodium 8.6/50 MG Tablet PO SCH ×2 (09:14→20:48)
[2018-07-11] MEDS: Dexamethasone Inj 20 MG/5 ML Vial IV.PUSH SCH (09:14)
[2018-07-11] MEDS: Famotidine PF Inj 20 MG/2 ML Vial IV.PUSH SCH ×2 (09:14→20:48)
[2018-07-11] MEDS: Vancomycin Inj 2,250 MG in Sodium Chlor 0.9% Inj 500 ML IV.SIG SCH (16:00)
[2018-07-12] MEDS: Enoxaparin Inj 40 MG/0.4 ML Syringe SQ SCH (01:28)
[2018-07-12] MEDS: Clindamycin 900 mg/NS Premix 900 MG/50 ML PIGGYBACK IV.SIG SCH ×3 (01:28→19:36)
[2018-07-12] MEDS: Vancomycin Inj 2,250 MG in Sodium Chlor 0.9% Inj 500 ML IV.SIG SCH ×2 (04:18→19:35)
[2018-07-12] MEDS: Chlorhexidine Gluconate 2% 1 Pack (2 Cloths) TOPICAL SCH (06:26)
[2018-07-12 07:23] LABS: Baso % (Auto) 0.2 % (0.0-2.0); Hematocrit 38.5 % (35.0-46.0); Lymph # (Auto) 1.4 th/mm3 (1.0-4.8); Lymph % (Auto) 11.7 % (9.0-44.0); Mean Corpuscular HGB Conc 33.6 % (32.0-36.0); Mean Corpuscular Hemoglobin 29.6 pg (27.0-34.0); Mean Platelet Volume 8.9 fL (7.0-11.0); Mono # (Auto) 0.8 th/mm3 (0.0-0.9); Mono % (Auto) 6.9 % (0.0-8.0); Neut # (Auto) 9.4 th/mm3 (1.8-7.7); Neut % (Auto) 81.2 % (16.0-70.0); Platelet Count 282 th/mm3 (150-450); Red Blood Count 4.38 mil/mm3 (4.00-5.30); Red Cell Distribution Width 14.1 % (11.6-17.2); White Blood Count 11.5 th/mm3 (4.0-11.0)
[2018-07-12 07:31] LABS: Activated Partial Thrombo Time 28.3 sec (24.3-30.1); Prothrombin Time 10.1 sec (9.8-11.6)
[2018-07-12 07:51] LABS: Alkaline Phosphatase 66 U/L (45-117); Total Protein 6.7 g/dL (6.4-8.2)
[2018-07-12 07:52] LABS: Alanine Aminotransferase 27 U/L (10-53); Albumin 3.1 g/dL (3.4-5.0); Anion Gap 9 meq/L (5-15); Blood Urea Nitrogen 11 mg/dL (7-18); Calcium 8.8 mg/dL (8.5-10.1); Carbon Dioxide 25.7 meq/L (21.0-32.0); Chloride 108 meq/L (98-107); Glomerular Filtration Rate Greater Than 89 mL/min (>89); Glucose,Random 113 mg/dL (74-106); Sodium 143 meq/L (136-145)
[2018-07-12 07:53] LABS: Aspartate Aminotransferase 17 U/L (15-37); Magnesium 2.2 mg/dL (1.5-2.5)
--- NOTE | 2018-07-12 08:43 | P.PN ---
Subjective Interval history: Cell Installer Notes: Admission 07/11/18 37-year-old very pleasant female presents for an evaluation of sore throat and fever for the last 3 days. She has difficulty swallowing, T-max of 102 at home, no nausea or vomiting or diarrhea, she never had these symptoms past, no chest pain or shortness of breath. The CT of the neck soft tissues shows Bilateral posterolateral supraglottic laryngeal abscesses significantly effacing the piriform sinuses bilaterally, threatening airway compromise, and the patient has been admitted to critical care service. re-evaluated patient. no airway compromise. not in distress. Dr. Koenig at bedside: ok to transfer to floor. keep on iv abx for another 24h. likely d/c home tomorrow. Dr. Koenig asked to see her in Clinic thursday or of next week. advance diet to mechanical soft. oob Hospitalist Notes: 07/12: Seen in her bedroom improving condition, seen by ENT specialist recommended for discharge at this time and follow in two to three days in his office. continue antibiotics by mouth. Physical Exam Vital signs: Vital Signs 07/11/18 11:19 07/11/18 12:00 07/11/18 14:00 Temperature 98.5 F Pulse Rate 72 61 75 Respiratory Rate 19 Blood Pressure 130/70 Pulse Oximetry 96 07/11/18 16:00 07/11/18 17:00 07/11/18 18:00 Temperature 98.6 F Pulse Rate 79 62 70 Respiratory Rate 16 12 21 Blood Pressure 144/70 H 134/69 153/78 H Pulse Oximetry 96 93 L 96 07/11/18 19:00 07/11/18 20:00 07/11/18 21:00 Temperature 98.1 F Pulse Rate 70 70 74 Respiratory Rate 13 30 H 21 Blood Pressure 147/71 H 161/70 H Pulse Oximetry 97 97 97 07/12/18 00:00 Temperature 97.5 F L Pulse Rate 67 Respiratory Rate 17 Blood Pressure 136/74 Pulse Oximetry 96 Intake & Output 07/11/18 07/12/18 07/12/18 18:59 06:59 18:59 Intake Total 3194.5 / 3194.5 572.5 / 572.5 Balance 3194.5 / 3194.5 572.5 / 572.5 Weight 124.6 kg Intake: IV 2144.5 / 2144.5 572.5 / 572.5 NS Inj 1,000 ML @ 84 mls/hr IV. 1000 / 1000 CONT .[id number] [facility] Rx#:[id number] Cleocin 900 mg/NS Premix 900 mg 100 / 100 50 / 50 In 50 ml @ 100 mls/hr IV.SIG Q8H [facility] Rx#:[id number] Vancomycin Inj 2,250 MG In NS 1044.5 / 1044.5 522.5 / 522.5 Inj 500 ML @ 250 mls/hr IV.SIG Q12H [facility] Rx#:[id number] Oral 1050 / 1050 Other: # Voids 1 1 # Bowel Movements 0 Narrative: GENERAL: This is a well-nourished, well-developed patient, in no apparent distress. CARDIOVASCULAR: Regular rate and rhythm without murmurs, gallops, or rubs. RESPIRATORY: Clear to auscultation. Breath sounds equal bilaterally. No wheezes , rales, or rhonchi. GASTROINTESTINAL: Abdomen soft, non-tender, nondistended. Normal active bowel sounds MUSCULOSKELETAL: Extremities without clubbing, cyanosis, or edema. NEURO: Alert & Oriented x4 to person, place, time, situation. Moves all ext x4 Results - Labs CBC & Chem 7: 07/12/18 04:50 07/12/18 04:50 Laboratory Results - last 24 hr 07/11/18 07/12/18 07/12/18 04:30 04:50 04:50 WBC 11.5 H RBC 4.38 Hgb 13.0 Hct 38.5 MCV 88.0 MCH 29.6 MCHC 33.6 RDW 14.1 Plt Count 282 MPV 8.9 Neut % (Auto) 81.2 H Lymph % (Auto) 11.7 [place] % (Auto) 6.9 Eos % (Auto) 0.0 Baso % (Auto) 0.2 Neut # (Auto) 9.4 H Lymph # (Auto) 1.4 [place] # (Auto) 0.8 Eos # (Auto) 0.0 Baso # (Auto) 0.0 WBC Differential . Differential Comment Auto diff final PT 10.1 INR 1.0 APTT 28.3 Sodium Potassium Chloride Carbon Dioxide Anion Gap BUN Creatinine Estimated GFR Random Glucose Calcium Phosphorus Magnesium Total Bilirubin AST ALT Alkaline Phosphatase Total Protein Albumin Nasal Screen MRSA (PCR) Not detected 10/08/18 04:50 WBC RBC Hgb Hct MCV MCH MCHC RDW Plt Count MPV Neut % (Auto) Lymph % (Auto) [place] % (Auto) Eos % (Auto) Baso % (Auto) Neut # (Auto) Lymph # (Auto) [place] # (Auto) Eos # (Auto) Baso # (Auto) WBC Differential Differential Comment PT INR APTT Sodium 143 Potassium 4.0 Chloride 108 H Carbon Dioxide 25.7 Anion Gap 9 BUN 11 Creatinine 0.66 Estimated GFR Greater than 89 Random Glucose 113 H Calcium 8.8 Phosphorus 4.0 Magnesium 2.2 Total Bilirubin 0.3 AST 17 ALT 27 Alkaline Phosphatase 66 Total Protein 6.7 D Albumin 3.1 L Nasal Screen MRSA (PCR) Microbiology 07/10/18 23:35 Blood - Peripheral Aerobic Blood Culture - Preliminary No growth in 1 day 07/10/18 23:35 Blood - Peripheral Anaerobic Blood Culture - Preliminary No growth in 1 day 07/10/18 23:40 Blood - Peripheral Aerobic Blood Culture - Preliminary No growth in 1 day 07/10/18 23:40 Blood - Peripheral Anaerobic Blood Culture - Preliminary No growth in 1 day - Imaging Soft Tissue Neck CT 07/10/18 21:49 CONCLUSION: 1. Bilateral posterolateral supraglottic laryngeal abscesses significantly effacing the piriform sinuses bilaterally, threatening airway compromise. 2. Low density process at a similar level anteriorly may be abscess or thyroglossal duct cyst Assessment and Plan - Plan Laryngeal abscess -Clindamycin empirically as a first-line therapy -Vancomycin per pharmacy dosing -Dexamethasone -ENT consult performed and okay to discharge Home. DVT GI prophylaxis -Teds SCDs -Lovenox -Pepcid Code Status: Full Code. Discussed Condition With: Patient and nurse Miss Lee Discharge Planning: discharge home now.
[2018-07-12] MEDS: Senna/Docusate Sodium 8.6/50 MG Tablet PO SCH (10:29)
[2018-07-12] MEDS: Famotidine PF Inj 20 MG/2 ML Vial IV.PUSH SCH (10:29)
[2018-07-12] MEDS: Dexamethasone Inj 20 MG/5 ML Vial IV.PUSH SCH (10:31)
[2018-07-12 12:16] VITALS: BP 132/80; PULSE 66; RESP 18; TEMP 98; O2SAT 100
[2018-07-12] MEDS ORDERED: Pharmacy Ordered Lab Info OTHER ONE (15:45)
--- NOTE | 2018-07-12 16:27 | P.DS ---
Date of admission: 07/10/18 23:59 Primary care physician: No Primary Care Physician Attending physician on discharge: Philip Greenfield Anticipated date of discharge: 07/12/18 Brief History from admission: 37-year-old very pleasant female presents for an evaluation of sore throat and fever for the last 3 days. She has difficulty swallowing, T-max of 102 at home, no nausea or vomiting or diarrhea, she never had these symptoms past, no chest pain or shortness of breath. The CT of the neck soft tissues shows Bilateral posterolateral supraglottic laryngeal abscesses significantly effacing the piriform sinuses bilaterally, threatening airway compromise, and the patient has been admitted to critical care service. DS: Diagnosis - Discharge Diagnosis (1) Supraglottic abscess Status: Acute DS: Summary Hospital Course: [employer] Notes: Admission 07/11/18 37-year-old very pleasant female presents for an evaluation of sore throat and fever for the last 3 days. She has difficulty swallowing, T-max of 102 at home, no nausea or vomiting or diarrhea, she never had these symptoms past, no chest pain or shortness of breath. The CT of the neck soft tissues shows Bilateral posterolateral supraglottic laryngeal abscesses significantly effacing the piriform sinuses bilaterally, threatening airway compromise, and the patient has been admitted to critical care service. re-evaluated patient. no airway compromise. not in distress. Dr. Koenig at bedside: ok to transfer to floor. keep on iv abx for another 24h. likely d/c home tomorrow. Dr. Koenig asked to see her in Clinic thursday or of next week. advance diet to mechanical soft. oob Hospitalist Notes: 07/12: Seen in her bedroom improving condition, seen by ENT specialist recommended for discharge at this time and follow in two to three days in his office. continue antibiotics by mouth. Physical Exam Vital signs: Vital Signs 07/11/18 11:19 07/11/18 12:00 07/11/18 14:00 Temperature 98.5 F Pulse Rate 72 61 75 Respiratory Rate 19 Blood Pressure 130/70 Pulse Oximetry 96 07/11/18 16:00 07/11/18 17:00 07/11/18 18:00 Temperature 98.6 F Pulse Rate 79 62 70 Respiratory Rate 16 12 21 Blood Pressure 144/70 H 134/69 153/78 H Pulse Oximetry 96 93 L 96 07/11/18 19:00 07/11/18 20:00 07/11/18 21:00 Temperature 98.1 F Pulse Rate 70 70 74 Respiratory Rate 13 30 H 21 Blood Pressure 147/71 H 161/70 H Pulse Oximetry 97 97 97 07/12/18 00:00 Temperature 97.5 F L Pulse Rate 67 Respiratory Rate 17 Blood Pressure 136/74 Pulse Oximetry 96 Intake & Output 07/11/18 07/12/18 07/12/18 18:59 06:59 18:59 Intake Total 3194.5 / 3194.5 572.5 / 572.5 Balance 3194.5 / 3194.5 572.5 / 572.5 Weight 124.6 kg Intake: IV 2144.5 / 2144.5 572.5 / 572.5 NS Inj 1,000 ML @ 84 mls/hr IV. 1000 / 1000 CONT .[id number] G[facility] Rx#:[id number] Cleocin 900 mg/NS Premix 900 mg 100 / 100 50 / 50 In 50 ml @ 100 mls/hr IV.SIG Q8H G[facility] Rx#:[id number] Vancomycin Inj 2,250 MG In NS 1044.5 / 1044.5 522.5 / 522.5 Inj 500 ML @ 250 mls/hr IV.SIG Q12H G[facility] Rx#:[id number] Oral 1050 / 1050 Other: # Voids 1 1 # Bowel Movements 0 Results - Labs CBC & Chem 7: 07/12/18 04:50 07/12/18 04:50 Laboratory Results - last 24 hr 07/11/18 07/12/18 07/12/18 04:30 04:50 04:50 WBC 11.5 H RBC 4.38 Hgb 13.0 Hct 38.5 MCV 88.0 MCH 29.6 MCHC 33.6 RDW 14.1 Plt Count 282 MPV 8.9 Neut % (Auto) 81.2 H Lymph % (Auto) 11.7 Miner % (Auto) 6.9 Eos % (Auto) 0.0 Baso % (Auto) 0.2 Neut # (Auto) 9.4 H Lymph # (Auto) 1.4 Miner # (Auto) 0.8 Eos # (Auto) 0.0 Baso # (Auto) 0.0 WBC Differential . Differential Comment Auto diff final PT 10.1 INR 1.0 APTT 28.3 Sodium Potassium Chloride Carbon Dioxide Anion Gap BUN Creatinine Estimated GFR Random Glucose Calcium Phosphorus Magnesium Total Bilirubin AST ALT Alkaline Phosphatase Total Protein Albumin Nasal Screen MRSA (PCR) Not detected 07/12/18 04:50 WBC RBC Hgb Hct MCV MCH MCHC RDW Plt Count MPV Neut % (Auto) Lymph % (Auto) Miner % (Auto) Eos % (Auto) Baso % (Auto) Neut # (Auto) Lymph # (Auto) Miner # (Auto) Eos # (Auto) Baso # (Auto) WBC Differential Differential Comment PT INR APTT Sodium 143 Potassium 4.0 Chloride 108 H Carbon Dioxide 25.7 Anion Gap 9 BUN 11 Creatinine 0.66 Estimated GFR Greater than 89 Random Glucose 113 H Calcium 8.8 Phosphorus 4.0 Magnesium 2.2 Total Bilirubin 0.3 AST 17 ALT 27 Alkaline Phosphatase 66 Total Protein 6.7 D Albumin 3.1 L Nasal Screen MRSA (PCR) Microbiology 07/10/18 23:35 Blood - Peripheral Aerobic Blood Culture - Preliminary No growth in 1 day 07/10/18 23:35 Blood - Peripheral Anaerobic Blood Culture - Preliminary No growth in 1 day 07/10/18 23:40 Blood - Peripheral Aerobic Blood Culture - Preliminary No growth in 1 day 07/10/18 23:40 Blood - Peripheral Anaerobic Blood Culture - Preliminary No growth in 1 day - Imaging Soft Tissue Neck CT 07/10/18 21:49 CONCLUSION: 1. Bilateral posterolateral supraglottic laryngeal abscesses significantly effacing the piriform sinuses bilaterally, threatening airway compromise. 2. Low density process at a similar level anteriorly may be abscess or thyroglossal duct cyst Assessment and Plan - Plan Laryngeal abscess -Clindamycin empirically as a first-line therapy -Vancomycin per pharmacy dosing -Dexamethasone -ENT consult performed and okay to discharge Home. DVT GI prophylaxis -Teds SCDs -Lovenox -Pepcid Code Status: Full Code. Discussed Condition With: Patient and nurse Miss Lee Discharge Planning: discharge home now. - Time Spent with Patient Total time spent providing and/or coordinating discharge services: Less than 30 minutes - Quality: VTE Deep Vein Thrombosis/Pulmonary Embolism Present on Admission: No Exam Vital signs: Vital Signs 07/11/18 17:00 07/11/18 18:00 07/11/18 19:00 Temperature Pulse Rate 62 70 70 Respiratory Rate 12 21 13 Blood Pressure 134/69 153/78 H 147/71 H Pulse Oximetry 93 L 96 97 07/11/18 20:00 07/11/18 21:00 07/12/18 00:00 Temperature 98.1 F 97.5 F L Pulse Rate 70 74 67 Respiratory Rate 30 H 21 17 Blood Pressure 161/70 H 136/74 Pulse Oximetry 97 97 96 07/12/18 08:00 07/12/18 12:00 Temperature 97.8 F 98.0 F Pulse Rate 60 66 Respiratory Rate 18 18 Blood Pressure 148/89 H 132/80 Pulse Oximetry 100 100 Intake & Output 07/11/18 07/12/18 07/12/18 18:59 06:59 18:59 Intake Total 3194.5 / 3194.5 572.5 / 572.5 50 / 50 Balance 3194.5 / 3194.5 572.5 / 572.5 50 / 50 Weight 124.6 kg Intake: IV 2144.5 / 2144.5 572.5 / 572.5 50 / 50 NS Inj 1,000 ML @ 84 mls/hr IV. 1000 / 1000 CONT .[id number] [facility] Rx#:[id number] Cleocin 900 mg/NS Premix 900 mg 100 / 100 50 / 50 50 / 50 In 50 ml @ 100 mls/hr IV.SIG Q8H [facility] Rx#:[id number] Vancomycin Inj 2,250 MG In NS 1044.5 / 1044.5 522.5 / 522.5 Inj 500 ML @ 250 mls/hr IV.SIG Q12H [facility] Rx#:[id number] Oral 1050 / 1050 Other: # Voids 1 1 # Bowel Movements 0 Narrative: GENERAL: This is a well-nourished, well-developed patient, in no apparent distress. CARDIOVASCULAR: Regular rate and rhythm without murmurs, gallops, or rubs. RESPIRATORY: Clear to auscultation. Breath sounds equal bilaterally. No wheezes , rales, or rhonchi. GASTROINTESTINAL: Abdomen soft, non-tender, nondistended. Normal active bowel sounds MUSCULOSKELETAL: Extremities without clubbing, cyanosis, or edema. NEURO: Alert & Oriented x4 to person, place, time, situation. Moves all ext x4 Results Procedures completed during hospitalization: None Labs on day of discharge: Labs from last 24 hours 07/12/18 07/12/18 07/12/18 04:50 04:50 04:50 WBC 11.5 H RBC 4.38 Hgb 13.0 Hct 38.5 MCV 88.0 MCH 29.6 MCHC 33.6 RDW 14.1 Plt Count 282 MPV 8.9 Neut % (Auto) 81.2 H Lymph % (Auto) 11.7 Miner % (Auto) 6.9 Eos % (Auto) 0.0 Baso % (Auto) 0.2 Neut # (Auto) 9.4 H Lymph # (Auto) 1.4 Miner # (Auto) 0.8 Eos # (Auto) 0.0 Baso # (Auto) 0.0 WBC Differential . Differential Comment Auto diff final PT 10.1 INR 1.0 APTT 28.3 Sodium 143 Potassium 4.0 Chloride 108 H Carbon Dioxide 25.7 Anion Gap 9 BUN 11 Creatinine 0.66 Estimated GFR Greater than 89 Random Glucose 113 H Calcium 8.8 Phosphorus 4.0 Magnesium 2.2 Total Bilirubin 0.3 AST 17 ALT 27 Alkaline Phosphatase 66 Total Protein 6.7 D Albumin 3.1 L Preliminary micro results at discharge 07/10/18 23:35 Aerobic Blood Culture - Preliminary Blood - Peripheral No growth in 2 days Anaerobic Blood Culture - Preliminary No growth in 2 days 07/10/18 23:40 Aerobic Blood Culture - Preliminary Blood - Peripheral No growth in 2 days Anaerobic Blood Culture - Preliminary No growth in 2 days - Impressions ITS Impressions Soft Tissue Neck CT 07/10/18 21:49 CONCLUSION: 1. Bilateral posterolateral supraglottic laryngeal abscesses significantly effacing the piriform sinuses bilaterally, threatening airway compromise. 2. Low density process at a similar level anteriorly may be abscess or thyroglossal duct cyst Discharge Plan - Discharge Disposition Patient Disposition: 01 Discharge Home - Discharge Condition Condition: Good - Discharge Order Discharge Orders: Discharge Order (Routine); Ordered 07/12/18 Ordered By: Philip Greenfield - Discharge Details Anticipated Discharge Date: 07/12/18 Discharge Comment: follow with ENT specialist Doctor Arya Valencia. July [id number] in his office call for appointment. - Physicians Team Primary Care Provider: Primary Care Physici,No Attending Provider: Philip Greenfield Other Providers: Redd Koenig MD
== END 2018-07-12 17:24 | disposition home or self-care (01) ==
LOC: NEPD 20:04 → NEDA 23:59 → HIMC 07-11 04:15 → N07 07-11 22:06
PROVIDERS: ADMIT Internal Medicine; ATTEND Internal Medicine